=== PATIENT | female | born 1970 | race Caucasian/White ===

== ENCOUNTER 2021-10-20 11:34 | Outpatient (CLI) | payer MEDICAID, SELFPAY ==
--- NOTE | 2021-10-20 11:30 | CRLHL7_ITS ---
For Patients: As a result of the Century Cures Act, medical imaging exams and procedure reports are released immediately into your electronic medical record. You may view this report before your referring provider. If you have questions, please contact your health care provider. BILATERAL SCREENING MAMMOGRAM WITH COMPUTER-AIDED DETECTION AND TOMOSYNTHESIS TECHNIQUE: CC and MLO views were obtained. These mammographic images have been obtained using full-field digital technique. These mammographic images were interpreted with the benefit of computer-aided detection. Breast Tomosynthesis was used in this interpretation. COMPARISON FILM: 04/13/20, 05/14/18, 09/14/15. FINDINGS: There are scattered areas of fibroglandular density IMPRESSION: There is no radiographic evidence for malignancy. ASSESSMENT: BI-RADS Category 1: Negative RECOMMENDATION: Routine screening mammogram in 1 year. A lay language report of this examination will be provided to the patient. Gregg Felix M.D. Diagnostic Radiologist [email or web address] BRIANNE/Dictated by: Gregg Felix MD @ 10/20/2021 1:02:00 PM (Electronically Signed)
== END 2021-10-20 11:35 | disposition home or self-care (01) ==
LOC: MAMMO 11:34
PROVIDERS: PCP Physician Assistant Medical; Visit Provider Physician Assistant Medical
DX: Z12.31 Encounter for screening mammogram for malignant neoplasm of breast (principal)
CPT/HCPCS: 77063; 77067

== ENCOUNTER 2021-10-22 23:34 | Emergency (ER) | payer MEDICAID, SELFPAY ==
[2021-10-22 23:43] VITALS: BP 120/75; PULSE 89; RESP 18; TEMP 37; O2SAT 99; BMI 30.7
--- NOTE | 2021-10-23 00:02 | ED.SKABFB ---
HPI - Skin/Abscess/Foreign Bdy General Time Seen by Provider: 00:03 Date Seen: 10/23/21 Chief complaint: Insect Bite Stated complaint: bee stung left inner arm Time Seen by Provider: 10/23/21 00:02 Source: patient, family and RN notes reviewed Mode of arrival: ambulatory Limitations: no limitations History of Present Illness HPI narrative: Samantha is a very pleasant 51-year-old female, previously healthy who comes to the emergency room for evaluation of an insect bite on her left arm. Patient states that at 0400 hours she saw either a bee or a wasp sting her left forearm. She wiped it away and did scrape this area to remove any possibility of a retained stinger. She is having increasing swelling and discomfort in this area since that time. Fortunately, she did not have any vomiting, difficulty breathing, swelling of the mucous membranes. She has not had an anaphylactic reaction to insect bites in the past. She took 5 Children's Benadryl for a total of 62.5 mg at approximately 2320 hours . She has also been icing her arm. complaint: insect bite/sting Onset (ago): hour(s) (1600 10/22/21) Location: LUE (Distal 3rd volar forearm.) Severity: moderate Quality: aching Pain Consistency: constant Relieving factors: cold therapy and medication (Benadryl) Exacerbating factors: palpation and movement Context: witnessed insect bite Associated symptoms: denies other symptoms Treatments prior to arrival: Benadryl Related Data Home Medications Medication Instructions Recorded Confirmed No Known Home Medications 10/22/21 10/22/21 Review of Systems Status of ROS: Reports: 6 or more systems reviewed and unremarkable except as noted in History and below Const: Denies: fever ENMT: Denies: throat pain, throat swelling, difficulty swallowing, hoarseness or swelling of lips/tongue Cardio: Denies: chest pain or shortness of breath with exertion Resp: Denies: shortness of breath or wheezing GI: Denies: difficulty swallowing Musculo: Reports: extremity pain and extremity swelling Allergy/Immuno: Denies: throat swelling or wheezing [facility] Medical History History of gastric ulcer Low back pain Surgical History History of section History of cholecystectomy Social History Smoking Status: Never smoker Do you use any of these nicotine containing products: None Second hand tobacco smoke exposure: No How often do you have a drink containing alcohol: never How often do you have six or more drinks on one occasion: Never AUDIT-C Alcohol total score: 0 Non-prescribed substance use: denies use Exam Const: Vital Signs, click to edit/add: Vital Signs - 24 hr 10/22/21 23:43 Temperature 98.6 F Pulse Rate [Right Pulse Oximeter] 89 Respiratory Rate 18 Blood Pressure [Ri ght Upper Arm] 120/75 Pulse Oximetry 99 Oxygen Delivery Me thod Room Air Documenting provider has reviewed patient's vital signs: yes Common normals: no apparent distress, oriented x3, no limitations and alert General appearance: cooperative, comfortable and well kempt HENMT: Common normals: head/scalp atraumatic, external ears normal and external nose normal Head and scalp: atraumatic Face and sinus: normal facial exam Nose: external nose normal External ear: external ears normal Mouth: oral and palatal mucosa normal, lip normal and tongue normal Throat: posterior oropharynx normal Eye: Common normals: PERRL General eye: normal appearance of both eyes Pupil: PERRL Neck & C-Spine: Common normals: no lymphadenopathy and supple Resp: Common normals: normal respiratory effort and clear to auscultation bilaterally Effort & inspection: able to speak in complete sentences Auscultation: clear to auscultation bilaterally Cardio: Common normals: regular rate and regular rhythm Rate: regular rate Rhythm: regular rhythm Extremity: Other: Left forearm shows area of demarcated mild erythema from the distal 3rd left forearm volar surface to the wrist. This area is warm to the touch. There is some boggy dependent edema on the posterior medial surface. There is no remaining stinger palpated. There does appear to be increased erythema amongst the mild erythema extending in a linear fashion distally toward the wrist. Range of motion intact. Distally sensation and motor intact. Neuro: Common normals: oriented x3 Sensorium/orientation: alert Psych: Appearance: well kempt Course Course Hospital Course: At this time differential diagnosis includes localized sting reaction to insect, cellulitis, lymphangitis. Given the amount of time since the original sting I suspect that this is a sting reaction. We do ascertain that patient has taken Children's Benadryl a total of 62.5 mg p.o.. She has no evidence of systemic or respiratory symptoms. Vital Signs Vital signs: Initial Vital Signs Temperature 98.6 F 10/22/21 23:43 Temperature Source Temporal Artery Scan 10/22/21 23:43 Pulse Rate 89 10/22/21 23:43 Respiratory Rate 18 10/22/21 23:43 Blood Pressure 120/75 10/22/21 23:43 Blood Pressure Mean 90 10/22/21 23:43 Blood Pressure Position Sitting 10/22/21 23:43 Pulse Oximetry 99 10/22/21 23:43 Oxygen Delivery Method 10/22/21 23:43 Vital Signs Temperature 98.6 F 10/22/21 23:43 Pulse Rate 89 10/22/21 23:43 Respiratory Rate 18 10/22/21 23:43 Blood Pressure 120/75 10/22/21 23:43 Pulse Oximetry 99 10/22/21 23:43 Oxygen Delivery Method 10/22/21 23:43 Temperature 98.6 F 10/22/21 23:43 Pulse Rate 89 10/22/21 23:43 Respiratory Rate 18 10/22/21 23:43 Blood Pressure 120/75 10/22/21 23:43 Pulse Oximetry 99 10/22/21 23:43 Oxygen Delivery Method 10/22/21 23:43 MDM - Skin/Abscess/Foreign Bdy MDM Narrative Medical decision making narrative: 1. Insect bite-patient has no past history of anaphylaxis. At this time reaction remains localized. Would recommend continuing antihistamines. Patient will take a 2nd dose of Benadryl 50 mg at approximately 3 or 0400 hours and then switch to Zyrtec tomorrow morning at 1000 hours. She will repeat the 10 mg of Zyrtec on the morning of 10/24/2021. Patient will also start on prednisone 20 mg p.o. b.i.d. x5 days. She may continue icing this area as well as using ibuprofen as needed for discomfort. Recommend returning or seeking medical attention a sap for vomiting, redness that is climbing toward her shoulder, difficulty breathing or vomiting. 2. Disposition-patient is discharged home. We will put prednisone instant meds. She may picker/puller Zyrtec tomorrow at the pharmacy. Addendum: Patient noted to have history of ulcers remotely 2008. I did discuss this with her and that the use of prednisone could increase her chances of redeveloping this. She states that she had prednisone a year ago and did not have any problems with that and will take food with that. I am recommending that she also start omeprazole daily while using prednisone. She and her acknowledged this as they are at the [employer] machine. Medical Records Attestation: I reviewed the patient's medical records. Discharge Plan Discharge Clinical Impression: Insect bite Patient Disposition: Home, Self-Care Condition: Unchanged Additional Instructions: Start prednisone tonight. Next dose of benadryl at 4 am - 50mg switch over to zyrtec 10mg at 8 am and then 10mg at 8am on 10/24 ibuprofen 600mg every 6-8 hours as needed for discomfort ice as needed return to the ed as needed for difficulty breathing, worsening redness or swelling, vomiting and as needed Prescriptions: No Action No Known Home Medications Follow Up/Referrals: Emilia Barakat PA-C [Primary Care Provider] - Stand Alone Forms: [employer] Info Instructions
[2021-10-23 00:33] VITALS: BP 120/75; PULSE 89; RESP 18; TEMP 37; O2SAT 99
== END 2021-10-23 00:33 | disposition home or self-care (01) ==
LOC: ED 10-23 00:29
PROVIDERS: Emergency Provider Family Medicine; PCP Physician Assistant Medical
DX: T63.441A Toxic effect of venom of bees, accidental (unintentional), initial encounter (principal)
CPT/HCPCS: 99282; 99283

== ENCOUNTER 2022-10-26 10:05 | Outpatient (CLI) | payer MEDICAID, SELFPAY | END 2022-10-26 10:06 | disposition home or self-care (01) | PROVIDERS: PCP Physician Assistant Medical; Visit Provider Physician Assistant Medical | DX: Z00.00 Encounter for general adult medical examination without abnormal findings (principal); E66.9 Obesity, unspecified; E55.9 Vitamin D deficiency, unspecified; Z13.6 Encounter for screening for cardiovascular disorders; Z13.0 Encounter for screening for diseases of the blood and blood-forming organs and certain disorders involving the immune mechanism; Z11.59 Encounter for screening for other viral diseases; Z11.3 Encounter for screening for infections with a predominantly sexual mode of transmission | CPT/HCPCS: 80053; 82306; 83001; 86703; 86803; 87086 ==

== ENCOUNTER 2022-11-16 08:40 | Outpatient (CLI) | payer MEDICAID, SELFPAY ==
--- NOTE | 2022-11-16 08:45 | CRLHL7_ITS ---
For Patients: As a result of the Century Cures Act, medical imaging exams and procedure reports are released immediately into your electronic medical record. You may view this report before your referring provider. If you have questions, please contact your health care provider. BILATERAL DIGITAL SCREENING MAMMOGRAM WITH TOMOSYNTHESIS AND COMPUTER-AIDED DETECTION CLINICAL HISTORY: Routine screening exam. COMPARISON: 10/20/2021, 04/13/2020, 05/31/2018, 05/14/2018. TECHNIQUE: Digital mammogram in CC and MLO projections including computer-aided detection (CAD). Tomosynthesis utilized. BREAST COMPOSITION: There are areas of scattered fibroglandular density. FINDINGS: RIGHT Breast: No suspicious findings. LEFT Breast: Focal asymmetric density upper outer quadrant 7 cm from the nipple. IMPRESSION: LEFT breast asymmetry/mass. RECOMMENDATIONS: Additional mammographic views of the LEFT breast including 3D spot compression CC/MLO. LEFT breast ultrasound may also be required. BI-RADS Category 0: Incomplete: Need Additional Imaging Evaluation and/or Prior Mammograms for Comparison [facility] will contact the patient for follow-up. A lay language report of this examination will be provided to the patient. Dictated by Gregg Felix MD @ 11/16/2022 1:30:07 PM jocelinej/Dictated by: Gregg Felix MD @ 11/16/2022 1:30:00 PM (Electronically Signed)
== END 2022-11-16 08:41 | disposition home or self-care (01) ==
LOC: MAMMO 08:42
PROVIDERS: PCP Physician Assistant Medical; Visit Provider Physician Assistant Medical
DX: Z12.31 Encounter for screening mammogram for malignant neoplasm of breast (principal); N63.20 Unspecified lump in the left breast, unspecified quadrant
CPT/HCPCS: 77063; 77067

== ENCOUNTER 2022-11-27 08:37 | Outpatient (CLI) | payer MEDICAID, SELFPAY ==
--- NOTE | 2022-11-27 08:45 | CRLHL7_ITS ---
For Patients: As a result of the Cures Act, medical imaging exams and procedure reports are released immediately into your electronic medical record. You may view this report before your referring provider. If you have questions, please contact your health care provider. DIGITAL DIAGNOSTIC LEFT MAMMOGRAM USING TOMOSYNTHESIS AND COMPUTER-AIDED DETECTION LEFT BREAST ULTRASOUND CLINICAL HISTORY: LEFT breast mass/asymmetry. COMPARISON: 11/16/2022 TECHNIQUE: Digital LEFT mammogram in two projections. Tomosynthesis and CAD utilized. Real-time ultrasound imaging of LEFT breast with imaging documentation. BREAST COMPOSITION: There are areas of scattered fibroglandular density. FINDINGS: 3D spot compression CC/MLO LEFT breast mammogram images submitted. Decreased conspicuity of previously noted asymmetric density. No architectural distortion. Benign calcifications. Targeted LEFT breast ultrasound performed 2 o`clock 7 cm from the nipple. Benign fibrocystic changes are present with tiny cysts measuring up to 5 millimeters. IMPRESSION: Benign fibrocystic change. No evidence of malignancy. RECOMMENDATIONS: Annual BILATERAL screening mammography. Results and recommendations discussed with the patient. BI-RADS Category 2: Benign A lay language report of this examination will be provided to the patient. Dictated by Gregg Felix MD @ 11/27/2022 9:55:31 AM jj/Dictated by: Gregg Felix MD @ 11/27/2022 9:55:00 AM (Electronically Signed)
--- NOTE | 2022-11-27 09:15 | CRLHL7_ITS ---
For Patients: As a result of the Cures Act, medical imaging exams and procedure reports are released immediately into your electronic medical record. You may view this report before your referring provider. If you have questions, please contact your health care provider. PLEASE SEE DIGITAL DIAGNOSTIC LEFT MAMMOGRAM PERFORMED SAME DAY CRL:lencho musa/Dictated by: Gregg Felix MD @ 11/27/2022 9:55:00 AM (Electronically Signed)
== END 2022-11-27 08:38 | disposition home or self-care (01) ==
LOC: MAMMO 08:38
PROVIDERS: PCP Physician Assistant Medical; Visit Provider Physician Assistant Medical
DX: N63.20 Unspecified lump in the left breast, unspecified quadrant (principal); R92.8 Other abnormal and inconclusive findings on diagnostic imaging of breast
CPT/HCPCS: 76642; 77065; G0279

== ENCOUNTER 2023-12-19 13:26 | Outpatient (CLI) | payer MEDICARE, SELFPAY ==
--- OUTSIDE RECORDS SUMMARY | 2023-12-19 13:33 | XMS_ITS | Clinical Summary ---
Author Organization [facility] Address [place], [place] [address] Care Team Providers Care Last Inserter Name Role Phone [facility] ovider Allergies No known active allergies Medications Medication Sig Dispensed Refills Start Date End Date Status norgestimate-ethinyl estradiol, 0.25-35 mg-mcg, (SPRINTEC) 0.25-35 mg-mcg tabletIndications:Encou nter for contraceptive management, unspecified type Take 1 tablet by mouth once daily. 28 tablet 03/19/2017 Active Active Problems Problem Noted Date Diagnosed Date Low back pain 10/04/2011 Acute gastric ulcer without mention of hemorrhage, perforation, or obstruction 04/14/2009 Overview (04/16/2009): EGD 04/2008 ulcers, repeat EGD in 3 months Routine general medical exam ination at a health care facility 07/20/2006 Overview (07/20/2006): Pap smear 07/20/06 Immunizations Name Administration Dates Next Due Td (Age >=7 Years) 07/27/2003 Tdap 10/04/2011 Family History Medical History Relation Name Comments Diabetes Mother Cancer-breast No Family History Cancer-colon No Family History Relation Name Status Comments Father Alive Mother september Social History Tobacco Use Types Packs/Day Years Used Date Smoking Tobacco: Never Smokeless Tobacco: Never Tobacco Cessation:Counseling Given: Yes Alcohol Use Standard Drinks/Week Comments No 0 (1 standard drink = 0.6 oz pur e alcohol) Sex and Gender Information Value Date Recorded Sex Assigned at Not on file Gender Identity Not on file Sexual Orientation Not on file Obstetrics History Para Term AB IAB SAB Ectopic Multiple Livin g Live Births 2 2 2 Date Outcome GA Total Labor Labor/2nd/3rd Weight Sex Type Anes PTL Yasmeen A1 A5 Name Clin Para Para Last Filed Vital Signs Vital Sign Reading Time Taken Comments Blood Pressure 118/80 01/26/2017 1:17 PM [employer] Pulse 93 01/26/2017 1:17 PM [employer] Temperature 36.6 ??C (97.9 ??F) 01/26/2017 1:17 PM CS T Respiratory Rate 14 07/21/2012 9:56 AM CDT Oxygen Saturation 98% 01/26/2017 1:17 PM [employer] Inhaled Oxygen Concentration - - Weight 86.6 kg (191 lb) 01/26/2017 1:17 PM [employer] Height 150.5 cm (4' 11.25) 01/26/2017 1:[address] Body Mass Index 38.25 01/26/2017 1:17 PM [employer] Plan of Treatment Health Maintenance Due Date Last Done Comments HIV for age 15-65 02/24/1983 Hepatitis C screening for age 18-79 02/24/1986 Colonoscopy through age 75 02/24/2013 Mammogram for age 45-75 10/16/2013 10/16/2012, 12/16 Depression screening for age 12+ 02/13/2017 02/14/2016, 03/03/2015, 03/03/2015 BMI (ht and wt on same day) for age 18+ 01/26/2018 01/26/2017, 02/19/2016, 02/14/2016 Zoster (shingles) series for age 50+ (1 of 2) 02/24/2018 Lipids for age 45-75 02/13/2021 02/14/2016, 03/03/2015, 10/04/2011, Additional history exists Tetanus booster 10/03/2021 10/04/2011, 07/27/2003 COVID-19 vaccine series ( season) 2023 Influenza for age 50-64 10/07/2023 Pap test for age 21-65 05/23/2024 , 05/23/2021, 10/19/2017, Additional history exists Tdap Completed 10/04/2011 Pneumococcal series for age 6-64 Aged Out No longer eligible based on patient's age to complete this topic Procedures Procedure Name Priority Date/Time Associated Diagnosis Comments HPV HIGH RISK Routine 05/23/2021 5:00 PM CDT LIPID PANEL W REFLEX MEASURED LDL Routine 02/14/2016 5:29 PM [employer] Healthcare maintenance XR MAMMO BILAT SCREEN FFDM (IA) Routine 10/16/2012 10:15 AM CDT Other screening mammogram from Last 3 Months or Most Recently Relevant to Health Maintenance Results * HPV HIGH RISK (05/23/2021 5:00 PM CDT) TYPE 16 Negative Negative 05/26/2021 2:51 PM CDT [facility] TYPE 18 Negative Negative 05/26/2021 2:51 PM CDT [facility] OTHER HIGH RISK TYPES Negative Negative 05/26/2021 2:51 PM CDT [facility] Other (Cervical/Vagina l) 05/23/2021 5:00 PM CDT 05/25/2021 7:55 AM CDT Narrative [facility] - 05/26/2021 2:51 PM CDT HPV types 16, 18, 31, 33, 35, 39, 45, 51, 52, 56, 58, 59, 66 and 68 DNA were undetectable or below the pre-set threshold. Methodology: Brianna Chuck 4800 HPV Test Emilia Barakat PA-C MICROBIOLOGY [facility] [address] [place] [address], * (ABNORMAL) LIPID PANEL W REFLEX MEASURED LDL (02/14/2016 5:29 PM [employer]) CHOLESTEROL,TOTAL 206(H) 100 - 199 mg/dL 02/14/2016 5:57 PM [employer] [facility] TRIGLYCERIDES 117 <150 mg/dL 02/14/2016 5:57 PM [employer] [facility] HDL CHOLESTEROL 77 >40 mg/dL 7 5:57 PM [employer] [facility] NON-HDL CHOLESTEROL 129 <145 mg/dl 02/14/2016 5:57 PM [employer] [facility] CHOL/HDL RATIO 2.68 <4.50 02/14/2016 5:57 PM [employer] [facility] LDL CHOLESTEROL 106 <=130 mg/dL 02/14/2016 5:57 PM [employer] [facility] PATIENT STATUS NON-FASTI NG 02/14/2016 5:57 PM [employer] [facility] Blood BLOOD SPECIMEN / Unknown Venipuncture / Unknown 02/14/2016 5:29 PM [employer] 02/14/2016 5:29 PM [employer] Lexi Juarez MD CHEMISTRY [facility] [address] [place] [address], * XR MAMMO BILAT SCREEN FFDM (10/16/2012 10:15 AM CDT) Anatomical Region Laterality Modality BREASTS, Breast Left, Breast Right Bilateral Mammography Impressions 10/16/2012 12:19 PM CDT ??There is no radiographic evidence for malignancy. ??Recommend annual mammograms. A lay language report of this examination will be provided to the patient. MAMMOGRAM ASSESSMENT: ??ACR 2 Benign Narrative 10/16/2012 12:19 PM CDT XR MAMMO BILAT SCREEN FFDM [G0202.0] CLINICAL HISTORY: ??This is an asymptomatic 42 y.o. patient. INDICATION FOR EXAM: Mammogram Screening. TECHNIQUE: CC & MLO views were obtained. ??This digital study was evaluated with the assistance of Computer-Aided Detection. ?? COMPARISON FILMS: Yes 12/16/08 [facility] FINDINGS: ??Mammographically, the breast tissue has scattered fibroglandular densities (approximately 25% - 50% glandular). ??No suspicious masses or microcalcifications. ??Benign appearing calcifications within left breast. Procedure Note Best Jones DO - 10/16/2012 XR MAMMO BILAT SCREEN FFDM [G0202.0] CLINICAL HISTORY: This is an asymptomatic 42 y.o. patient. INDICATION FOR EXAM: Mammogram Screening. TECHNIQUE: CC & MLO views were obtained. This digital study was evaluatedwith the assistance of Computer-Aided Detection. COMPARISON FILMS: Yes 12/16/08 [facility] FINDINGS: Mammographically, the breast tissue has scatteredfibroglandular densities (approximately 25% - 50% glandular). Nosuspicious masses or microcalcifications. Benign appearing calcificationswithin left breast. IMPRESSION: There is no radiographic evidence for malignancy. Recommendannual mammograms. A lay language report of this examination will be provided to the patient. MAMMOGRAM ASSESSMENT: ACR 2 Benign Rosa Rosado MAMMO from Last 3 Months or Most Recently Relevant to Health Maintenance Care Teams Last Inserter Relationship Specialty Start Date End Date [facility], [facility] [address] [place], [place] [id number] PCP - General 09/17/23
== END 2023-12-19 13:27 | disposition home or self-care (01) ==
PROVIDERS: PCP Physician Assistant Medical; Visit Provider Physician Assistant Medical
DX: Z00.00 Encounter for general adult medical examination without abnormal findings (principal); E66.9 Obesity, unspecified; E55.9 Vitamin D deficiency, unspecified; Z13.6 Encounter for screening for cardiovascular disorders; Z13.0 Encounter for screening for diseases of the blood and blood-forming organs and certain disorders involving the immune mechanism; Z13.1 Encounter for screening for diabetes mellitus
CPT/HCPCS: 80053; 80061; 83001; 83002; 84443

== ENCOUNTER 2023-12-31 10:38 | Outpatient (CLI) | payer MEDICARE, SELFPAY ==
--- OUTSIDE RECORDS SUMMARY | 2023-12-31 10:41 | XMS_ITS | Clinical Summary ---
Author Organization [facility] Address [place], [place] [address] Care Team Providers Care Medicaid Billing Clerk Name Role Phone [facility], [facility] Primary Care Pr ovider Allergies No known [...] Comments Blood Pressure 118/80 01/26/2017 1:17 PM STORE WORKER Pulse 93 01/26/2017 1:17 PM STORE WORKER Temperature 36.6 C (97.9 F) 01/26/2017 1:17 PM STORE WORKER Respiratory Rate 14 07/21/2012 9:56 AM CDT Oxygen Saturation 98% 01/26/2017 1:17 PM STORE WORKER Inhaled Oxygen Concentration - - Weight 86.6 kg (191 lb) 01/26/2017 1:17 PM STORE WORKER Height 150.5 cm (4' 11.25) 01/26/2017 1:[address] Body Mass Index 38.25 01/26/2017 1:17 PM STORE WORKER Plan of Treatment Health Maintenance Due Date [...] booster 10/03/2021 10/04/2011, 07/27/2003 COVID-19 vaccine series (2023- season) 2023 Influenza for age 50-64 10/07/2023 [...] REFLEX MEASURED LDL Routine 02/14/2016 5:29 PM STORE WORKER Healthcare maintenance XR MAMMO BILAT SCREEN FFDM ([place]) Routine 10/16/2012 10:15 AM CDT Other screening mammogram from Last 3 Months or Most Recently Relevant to Health Maintenance Results * HPV HIGH RISK (05/23/2021 5:00 PM CDT) TYPE 16 Negative Negative 05/26/2021 2:51 PM CDT [facility] TYPE 18 Negative Negative 05/26/2021 2:51 PM CDT [facility] OTHER HIGH RISK TYPES Negative Negative 05/26/2021 2:51 PM CDT [facility] Other (Cervical/Vagina l) 05/23/2021 5:00 PM CDT 05/25/2021 7:55 AM CDT Narrative [facility] - 05/26/2021 2:51 PM CDT HPV types 16, 18, 31, 33, 35, 39, 45, 51, 52, 56, 58, 59, 66 and 68 DNA were undetectable or below the pre-set threshold. Methodology: Brianna Chuck 4800 HPV Test Emilia Barakat PA-C MICROBIOLOGY [facility] [address] [place] [address], * (ABNORMAL) LIPID PANEL W REFLEX MEASURED LDL (02/14/2016 5:29 PM STORE WORKER) CHOLESTEROL,TOTAL 206(H) 100 - 199 mg/dL 02/14/2016 5:57 PM STORE WORKER [facility] TRIGLYCERIDES 117 <150 mg/dL 02/14/2016 5:57 PM STORE WORKER [facility] HDL CHOLESTEROL 77 >40 mg/dL 7 5:57 PM STORE WORKER [facility] NON-HDL CHOLESTEROL 129 <145 mg/dl 02/14/2016 5:57 PM STORE WORKER [facility] CHOL/HDL RATIO 2.68 <4.50 02/14/2016 5:57 PM STORE WORKER [facility] LDL CHOLESTEROL 106 <=130 mg/dL 02/14/2016 5:57 PM STORE WORKER [facility] PATIENT STATUS NON-FASTI NG 02/14/2016 5:57 PM STORE WORKER [facility] Blood BLOOD SPECIMEN / Unknown Venipuncture / Unknown 02/14/2016 5:29 PM STORE WORKER 02/14/2016 5:29 PM STORE WORKER Lexi Juarez MD CHEMISTRY [facility] [address] [place] [address], * XR MAMMO BILAT SCREEN FFDM (10/16/2012 10:15 AM CDT) Anatomical Region Laterality Modality BREASTS, Breast Left, Breast Right Bilateral Mammography Impressions 10/16/2012 12:19 PM CDT There is no radiographic evidence for malignancy. Recommend annual mammograms. A lay language report of this examination will be provided to the patient. MAMMOGRAM ASSESSMENT: ACR 2 Benign Narrative 10/16/2012 12:19 PM CDT XR MAMMO BILAT SCREEN FFDM [G0202.0] CLINICAL HISTORY: This is an asymptomatic 42 y.o. patient. INDICATION FOR EXAM: Mammogram Screening. TECHNIQUE: CC & MLO views were obtained. This digital study was evaluated with the assistance of Computer-Aided Detection. COMPARISON FILMS: Yes 12/16/08 [facility] FINDINGS: Mammographically, the breast tissue has scattered fibroglandular densities (approximately 25% - 50% glandular). No suspicious masses or microcalcifications. Benign appearing calcifications within left breast. Procedure Note Best Jones DO - 10/16/2012 XR MAMMO BILAT SCREEN FFDM [G0202.0] CLINICAL HISTORY: This is an asymptomatic 42 y.o. patient. INDICATION FOR EXAM: Mammogram Screening. TECHNIQUE: CC & MLO views were obtained. This digital study was evaluatedwith the assistance of Computer-Aided Detection. COMPARISON FILMS: Yes 12/16/08 [facility] FINDINGS: Mammographically, the breast tissue has scatteredfibroglandular [...] Recently Relevant to Health Maintenance Care Teams Medicaid Billing Clerk Relationship Specialty Start Date End Date Clinic, [facility] [address] [place] [address] PCP - General 09/17/23
--- NOTE | 2023-12-31 10:45 | CRLHL7_ITS ---
For Patients: As a result of the Century Cures Act, medical imaging exams and procedure reports are released immediately into your electronic medical record. You may view this report before your referring provider. If you have questions, please contact your health care provider. INDICATION: Pelvic cramping with cycles COMPARISON: none TECHNIQUE: 2D ferrara scale and color Doppler images were acquired of the pelvis using a transabdominal and transvaginal approach. FINDINGS: Partially exophytic lower right lateral fibroid is present measuring 5.0 x 4.1 x 4.0 cm. Intramural fundal fibroid is present posteriorly measuring 2.2 x 2.2 x 2.2 cm. Uterus measures 11.6 cm in length by 5.2 cm in AP diameter by 6.1 cm in transverse dimension. The endometrial lining measures 3 mm in composite thickness. The ovaries are not well visualized. There is a simple right adnexal cyst measuring 16 x 19 x 20 millimeters. IMPRESSION: Uterine fibroids are present measuring up to 5.0 cm. Endometrial thickness 3 millimeters. No endometrial fluid. Simple right adnexal cyst measures 2 cm. Dictated by Gregg Felix MD @ 12/31/2023 1:09:42 PM (Electronically Signed)
== END 2023-12-31 10:39 | disposition home or self-care (01) ==
LOC: US 10:39
PROVIDERS: PCP Physician Assistant Medical; Visit Provider Physician Assistant Medical
DX: R10.2 Pelvic and perineal pain (principal); D25.9 Leiomyoma of uterus, unspecified; R93.89 Abnormal findings on diagnostic imaging of other specified body structures
CPT/HCPCS: 76830; 76856

== ENCOUNTER 2024-05-22 10:09 | Outpatient (CLI) | payer BC, SELFPAY | END 2024-05-22 10:10 | disposition home or self-care (01) | PROVIDERS: PCP Physician Assistant Medical; Visit Provider Physician Assistant Medical | DX: N91.2 Amenorrhea, unspecified (principal) | CPT/HCPCS: 82670; 83001; 84144 ==

== ENCOUNTER 2024-07-01 14:59 | Outpatient (CLI) | payer BC, SELFPAY | END 2024-07-01 15:00 | disposition home or self-care (01) | LOC: NFLDREF 07-04 12:13 | PROVIDERS: PCP Physician Assistant Medical; Referring Provider Physician Assistant Medical; Visit Provider Physician Assistant Medical | DX: R20.2 Paresthesia of skin (principal) | CPT/HCPCS: 82607 ==